=== PATIENT | female | born 1980 | race Two or more races ===

== ENCOUNTER 2017-03-29 06:35 | Day surgery (SDC) | payer OTHER ==
[2017-03-29] MEDS ORDERED: IV LACTATED RINGERS SOLUTION 1,000 ML BAG IV ONE (06:36)
[2017-03-29] MEDS ORDERED: DEXAMETHASONE SOD PHOSPHATE 4 MG INJ IV ONE (06:36)
[2017-03-29] MEDS ORDERED: METOCLOPRAMIDE HCL 10 MG/2 ML VIAL IV ONE (06:36)
[2017-03-29] MEDS ORDERED: LIDOCAINE HCL 2% 20 ML VIAL MC ONE (06:36)
[2017-03-29] MEDS ORDERED: ONDANSETRON 4 MG/2 ML VIAL IV ONE (06:36)
[2017-03-29] MEDS ORDERED: PROPOFOL 200 MG/20 ML BOTTLE IV ONE (06:36)
[2017-03-29 06:57] LABS: *URINE HCG, QUAL NEGATIVE (NEGATIVE)
[2017-03-29] MEDS ORDERED: POLYMYXIN B SULFATE 500,000 UNITS, BACITRACIN 50,000 UNITS, NORMAL SALINE 20 ML MC ONE ×3 (07:30)
[2017-03-29] MEDS ORDERED: BUPIVACAINE PF 0.5% 30 ML VIAL ONE (07:47)
[2017-03-29] MEDS ORDERED: METOCLOPRAMIDE HCL 10 MG/2 ML VIAL ONE (07:57)
[2017-03-29] MEDS ORDERED: FENTANYL CITRATE 100 MCG/2 ML AMPUL ONE (07:58)
[2017-03-29] MEDS ORDERED: MIDAZOLAM HCL 2 MG/2 ML VIAL ONE (07:58)
[2017-03-29] MEDS ORDERED: SEVOFLURANE 250 ML BOTTLE ONE (08:34)
== END 2017-03-29 11:11 | disposition home or self-care (01) ==
LOC: DS 06:35
PROVIDERS: ATTEND Orthopaedic Surgery
DX: G56.01 Carpal tunnel syndrome, right upper limb (principal); Z87.891 Personal history of nicotine dependence; R00.1 Bradycardia, unspecified
CPT/HCPCS: 84703; A4649; A4663; J1100; J2250; J2405; J2765; J3010; J3490; J7120

== ENCOUNTER 2018-03-28 10:28 | Day surgery (SDC) | payer OTHER ==
[2018-03-28] MEDS ORDERED: SEVOFLURANE 250 ML BOTTLE IH ONE (10:29)
[2018-03-28] MEDS ORDERED: LIDOCAINE-MPF 2% 5 ML VIAL MC ONE (10:29)
[2018-03-28] MEDS ORDERED: PROPOFOL 200 MG/20 ML BOTTLE IV ONE (10:29)
[2018-03-28] MEDS ORDERED: CEFAZOLIN 1 G VIAL MC ONE (10:29)
[2018-03-28] MEDS ORDERED: DEXAMETHASONE SOD PHOSPHATE 4 MG INJ IV ONE (10:29)
[2018-03-28] MEDS ORDERED: IV LACTATED RINGERS SOLUTION 1,000 ML BAG IV ONE (10:29)
[2018-03-28] MEDS ORDERED: ONDANSETRON 4 MG/2 ML VIAL IV ONE (10:29)
[2018-03-28 10:59] LABS: *URINE HCG, QUAL NEGATIVE (NEGATIVE)
[2018-03-28] MEDS ORDERED: BACITRACIN 50,000 UNITS VIAL ONE (12:58)
[2018-03-28] MEDS ORDERED: MIDAZOLAM HCL 2 MG/2 ML VIAL ONE (13:08)
[2018-03-28] MEDS ORDERED: BUPIVACAINE PF 0.5% 30 ML VIAL ONE (13:18)
== END 2018-03-28 16:00 | disposition home or self-care (01) ==
LOC: DS 10:28
PROVIDERS: ATTEND Orthopaedic Surgery
DX: G56.02 Carpal tunnel syndrome, left upper limb (principal); R00.1 Bradycardia, unspecified
CPT/HCPCS: 84703; A4649; A4663; J0690; J1100; J2250; J2405; J3490; J7120